=== PATIENT | female | born 1935 | race Caucasian/White ===

== ENCOUNTER → 2021-07-27 | Day surgery (SDC) | payer MEDICARE ==
[~2021-07-27] MED LIST: OR PHACO EYE KIT ONE; PREOP PHACO EYE KIT ONE; VITAMIN B12 PO; VITAMIN D PO
[2021-07-27 12:52] VITALS: BP 150/64
== END | disposition home or self-care (01) ==
LOC: OR 10:05
PROVIDERS: ATTEND Ophthalmology
DX: H25.11 Age-related nuclear cataract, right eye (principal); I10 Essential (primary) hypertension; Z01.812 Encounter for preprocedural laboratory examination; Z20.822 Contact with and (suspected) exposure to COVID-19
CPT/HCPCS: 66984; U0002; V2788

== ENCOUNTER → 2021-08-10 | Day surgery (SDC) | payer MEDICARE ==
[~2021-08-10] MED LIST changes: +CHONDR SU A NA/HYALUR SOD 1 EACH KIT IO ONE
[2021-08-10 14:10] VITALS: BP 183/89
== END | disposition home or self-care (01) ==
LOC: OR 11:16
PROVIDERS: ATTEND Ophthalmology
DX: H25.12 Age-related nuclear cataract, left eye (principal); I10 Essential (primary) hypertension; Z01.812 Encounter for preprocedural laboratory examination; Z20.822 Contact with and (suspected) exposure to COVID-19
CPT/HCPCS: 66984; U0002